=== PATIENT | male | born 1980 | race African-American/Black ===

== ENCOUNTER 2020-12-03 10:55 | Emergency (ER) | payer BC, OTHER ==
[~2020-12-03] VITALS: Ht 188 cm; Wt 117.9 kg
[2020-12-03] MEDS ORDERED: methylPREDNISolone SOD SUCC 125 MG/2 ML VL IV ONE (11:00)
[2020-12-03 12:03] LABS: Potassium 3.9 mmol/L (3.5-5.1)
[2020-12-03 12:27] LABS: Albumin 3.8 g/dL (3.4-5.0); Calcium 8.9 mg/dL (8.5-10.1)
[2020-12-03 12:36] LABS: Total Protein 8.1 g/dL (6.4-8.2)
[2020-12-03] MEDS ORDERED: ASPirin 81 mg TAB ONE (12:38)
[2020-12-03 12:45] LABS: Basophils # (auto) 0 10 ^3/uL (0-0.2); Basophils % (auto) 0.5 % (0.0-2.0); Eosinophils # (auto) 0 10 ^3/uL (0-0.8); Eosinophils % (auto) 0.1 % (0.0-7.0); Hematocrit 38.1 % (41.0-53.0); Hemoglobin 12.5 g/dL (13.5-17.5); Lymphocytes # (auto) 1.3 10 ^3/uL (0.4-5.4); Lymphocytes % (auto) 18.6 % (10.0-50.0); Mean Corpuscular Hemoglobin 28.6 pg (28.0-32.0); Mean Corpuscular Hgb Conc. 32.9 g/dL (32.0-36.0); Monocytes # (auto) 0.6 10 ^3/uL (0-1.3); Monocytes % (auto) 8.1 % (0.0-12.0); Neutrophils # (auto) 5.1 10 ^3/uL (1.6-8.6); Neutrophils % (auto) 72.7 % (37.0-80.0); Platelet Count (auto) 139 10^3/uL (140-450); Red Blood Cells 4.38 10^6/uL (4.5-5.90); Red Cell Distribution Width 14.9 % (11.8-14.3); White Blood Cell 7.1 10^3/uL (4.4-10.8)
[2020-12-03] MEDS ORDERED: ASPirin 81 mg TAB PO ONE (12:45)
[2020-12-03 12:46] LABS: Bilirubin, Total 2.6 mg/dL (0.2-1.0)
[2020-12-03 12:55] LABS: CRP High Sensitivity 7.92 mg/dL (< 0.3)
[2020-12-03 12:59] LABS: BUN/Creatinine Ratio 12.7
[2020-12-03] MEDS ORDERED: BAMLANIVIMAB 700MG/200ML 200 ML IV ONE (13:45)
[2020-12-03] MEDS ORDERED: ACETAMINOPHEN 325 MG TAB PO ONE (14:15)
[2020-12-03 16:02] VITALS: BP 121/77
== END 2020-12-03 16:10 | disposition home or self-care (01) ==
LOC: ER 10:55
DX: U07.1 COVID-19 (principal); E11.9 Type 2 diabetes mellitus without complications; R79.89 Other specified abnormal findings of blood chemistry; R79.82 Elevated C-reactive protein (CRP)
CPT/HCPCS: 36415; 71250; 80053; 82306; 82728; 83036; 85025; 85379; 86141; 96374; 99285; J2930; M0239; Q0239

== ENCOUNTER 2020-12-06 12:59 | Inpatient (IN) | payer BC ==
[~2020-12-06] VITALS: Ht 188 cm; Wt 113.8 kg
[2020-12-06] MEDS ORDERED: SODIUM CHLORIDE 0.9% 500 ML IV ONE (13:15)
[2020-12-06 13:49] LABS: Hematocrit 31.6 % (41.0-53.0); Hemoglobin 10.4 g/dL (13.5-17.5); Mean Corpuscular Hemoglobin 28.8 pg (28.0-32.0); Mean Corpuscular Hgb Conc. 32.8 g/dL (32.0-36.0); Mean Corpuscular Volume 87.8 fL (80.0-100.0); Platelet Count (auto) 285 10^3/uL (140-450); Red Cell Distribution Width 15.6 % (11.8-14.3); White Blood Cell 15.1 10^3/uL (4.4-10.8)
[2020-12-06 13:50] LABS: Potassium 5.1 mmol/L (3.5-5.1)
[2020-12-06 13:51] LABS: Basophils % (manual) 0 (0.0-2.0); Blast Cells 0; Eosinophils % (manual) 0 (0-7); Metamyelocytes % 0; Myelocytes % 0; Promyelocytes % 0; Reactive Lymphocytes 0
[2020-12-06 14:00] LABS: Albumin 3.1 g/dL (3.4-5.0); BUN/Creatinine Ratio 23.8; Bilirubin, Total 3.8 mg/dL (0.2-1.0); CRP High Sensitivity 10.8 mg/dL (< 0.3); Calcium 8.8 mg/dL (8.5-10.1); Total Protein 8.2 g/dL (6.4-8.2)
[2020-12-06 14:30] LABS: Band Neutrophils % (manual) 5; Lymphocytes % (manual) 11 (10.0-50.0); Monocytes % (manual) 6 (0-12)
[2020-12-06] MEDS ORDERED: SODIUM CHLORIDE 0.9% 1,000 ML IV ONE (14:45)
[2020-12-06] MEDS ORDERED: FAMOTIDINE (10MG/ML) 2ML VL IV ONE (14:45)
[2020-12-06] MEDS ORDERED: FOLIC ACID 1 MG TAB PO ONE (14:45)
[2020-12-06] MEDS ORDERED: traMADol HCL 50 MG TAB PO PRN (14:45)
[2020-12-06] MEDS ORDERED: ONDANSETRON HCL 4 MG/2 ML VIAL IV PRN (14:45)
[2020-12-06] MEDS ORDERED: ENOXAPARIN SOD 60 MG/0.6 ML SYRINGE SC ONE (14:45)
[2020-12-06] MEDS ORDERED: CHOLECALCIFEROL (VITD3) 2,000 UNIT CAP PO ONE (14:45)
[2020-12-06] MEDS ORDERED: PIPERACILLIN-TAZOB 3.375GM 100 ML IV ONE (14:45)
[2020-12-06] MEDS ORDERED: MORPHINE SULF INJ 2 MG/ML SYRINGE 1ML IV PRN (14:45)
[2020-12-06] MEDS ORDERED: THIAMINE 100mg/ml INJ (200mg/2ml VIAL) IV ONE (14:45)
[2020-12-06] MEDS ORDERED: NITROGLYCERIN 0.4 MG SL TAB SL PRN (14:45)
[2020-12-06] MEDS ORDERED: INSULIN LANTUS (GLARGINE) 1 /0.01ml (100units/ml) SC ONE (14:45)
[2020-12-06] MEDS ORDERED: DEXTROSE (50%) 50ML SYRG IV PRN (14:45)
[2020-12-06 15:46] LABS: % Iron Saturation 29.1 % (20-55)
[2020-12-06] MEDS: ACCU-CHEK COMFORT CURVE STRIP VI SCH ×2 (17:26→22:04)
[2020-12-06] MEDS: InsuLIN REG 1unit/0.01ml Soln (100units/ml) SC SCH ×3 (17:36→22:15)
[2020-12-06] MEDS ORDERED: EMPA1TAB3 PO (18:08)
[2020-12-06] MEDS ORDERED: LISI-648 PO (18:08)
[2020-12-06] MEDS ORDERED: ATOR40TA52 PO (18:08)
[2020-12-06] MEDS ORDERED: SEMA2INJ SC (18:08)
[2020-12-06] MEDS ORDERED: METF-372 PO (18:08)
[2020-12-06] MEDS ORDERED: INSU1INJ13 SC (18:08)
[2020-12-06] MEDS ORDERED: INSULIN LANTUS (GLARGINE) 1 /0.01ml (100units/ml) SC SCH (22:00)
[2020-12-06] MEDS: PIPERACILLIN-TAZOB 3.375GM 100 ML IV SCH (22:03)
[2020-12-06] MEDS: FAMOTIDINE (10MG/ML) 2ML VL IV SCH (22:04)
[2020-12-06] MEDS: ASCORBIC ACID 500 MG TAB PO SCH (22:04)
[2020-12-06] MEDS: ENOXAPARIN SOD 60 MG/0.6 ML SYRINGE SC SCH (22:04)
[2020-12-06 23:31] LABS: Urine Bacteria FEW /hpf (None Seen); Urine Blood 1+ /uL (Negative); Urine Specific Gravity 1.017 (1.001-1.035); Urine WBC 1 /hpf (0 - 3)
[2020-12-07 00:28] VITALS: BP 124/81
[2020-12-07] MEDS: PIPERACILLIN-TAZOB 3.375GM 100 ML IV SCH ×3 (05:36→21:59)
[2020-12-07] MEDS: InsuLIN REG 1unit/0.01ml Soln (100units/ml) SC SCH ×4 (06:38→22:04)
[2020-12-07] MEDS: ACCU-CHEK COMFORT CURVE STRIP VI SCH ×4 (06:38→22:02)
[2020-12-07 06:58] LABS: Hematocrit 29.5 % (41.0-53.0); Hemoglobin 9.6 g/dL (13.5-17.5); Mean Corpuscular Hemoglobin 28.7 pg (28.0-32.0); Mean Corpuscular Hgb Conc. 32.5 g/dL (32.0-36.0); Mean Corpuscular Volume 88.4 fL (80.0-100.0); Platelet Count (auto) 290 10^3/uL (140-450); Red Blood Cells 3.34 10^6/uL (4.5-5.90); Red Cell Distribution Width 15.7 % (11.8-14.3); White Blood Cell 11.7 10^3/uL (4.4-10.8)
[2020-12-07 07:08] LABS: Basophils % (manual) 0 (0.0-2.0); Blast Cells 0; Eosinophils % (manual) 0 (0-7); Promyelocytes % 0; Reactive Lymphocytes 0
[2020-12-07 07:17] LABS: Albumin 2.9 g/dL (3.4-5.0); Calcium 8.9 mg/dL (8.5-10.1); Potassium 4.4 mmol/L (3.5-5.1)
[2020-12-07 07:23] LABS: Bilirubin, Total 2.6 mg/dL (0.2-1.0); Total Protein 7.7 g/dL (6.4-8.2)
[2020-12-07 08:00] VITALS: BP 103/64
[2020-12-07 08:57] LABS: Band Neutrophils % (manual) 10; Lymphocytes % (manual) 12 (10.0-50.0); Metamyelocytes % 1; Monocytes % (manual) 7 (0-12); Myelocytes % 1
[2020-12-07] MEDS: THIAMINE 100mg/ml INJ (200mg/2ml VIAL) IV SCH (10:19)
[2020-12-07] MEDS: ZINC SULFATE 220mg CAP or TAB PO SCH (10:20)
[2020-12-07] MEDS: ASCORBIC ACID 500 MG TAB PO SCH ×2 (10:20→22:02)
[2020-12-07] MEDS: ENOXAPARIN SOD 60 MG/0.6 ML SYRINGE SC SCH ×2 (10:20→22:02)
[2020-12-07] MEDS: FAMOTIDINE (10MG/ML) 2ML VL IV SCH ×2 (10:20→21:59)
[2020-12-07] MEDS: CHOLECALCIFEROL (VITD3) 2,000 UNIT CAP PO SCH (10:20)
[2020-12-07] MEDS: FOLIC ACID 1 MG TAB PO SCH (10:20)
[2020-12-07] MEDS ORDERED: ERGOCALCIFEROL 50,000 UNIT(1.25MG) CAP PO SCH (11:30)
[2020-12-07] MEDS: SODIUM CHLORIDE 0.9% 1,000 ML IV SCH (11:44)
[2020-12-07 16:00] VITALS: BP_SYST 118; BP_SYST 129; BP_DIAS 79; BP_DIAS 80
[2020-12-07] MEDS ORDERED: INSULIN LANTUS (GLARGINE) 1 /0.01ml (100units/ml) SC SCH (22:00)
[2020-12-08] VITALS: BP 106/56
[2020-12-08] MEDS: SODIUM CHLORIDE 0.9% 1,000 ML IV SCH (01:06)
[2020-12-08] MEDS: PIPERACILLIN-TAZOB 3.375GM 100 ML IV SCH ×3 (05:44→21:47)
[2020-12-08 06:11] LABS: Hematocrit 28.2 % (41.0-53.0); Hemoglobin 9.4 g/dL (13.5-17.5); Mean Corpuscular Hemoglobin 29.4 pg (28.0-32.0); Mean Corpuscular Hgb Conc. 33.3 g/dL (32.0-36.0); Mean Corpuscular Volume 88.2 fL (80.0-100.0); Platelet Count (auto) 294 10^3/uL (140-450); Red Blood Cells 3.19 10^6/uL (4.5-5.90); Red Cell Distribution Width 15.7 % (11.8-14.3); White Blood Cell 9.9 10^3/uL (4.4-10.8)
[2020-12-08 06:27] LABS: Basophils % (manual) 0 (0.0-2.0); Blast Cells 0; Promyelocytes % 0; Reactive Lymphocytes 0
[2020-12-08] MEDS: InsuLIN REG 1unit/0.01ml Soln (100units/ml) SC SCH ×3 (06:27→17:40)
[2020-12-08] MEDS: ACCU-CHEK COMFORT CURVE STRIP VI SCH ×3 (06:27→17:39)
[2020-12-08 06:31] LABS: Albumin 2.7 g/dL (3.4-5.0); Calcium 8.1 mg/dL (8.5-10.1); Potassium 4.1 mmol/L (3.5-5.1)
[2020-12-08 06:34] LABS: BUN/Creatinine Ratio 16.4; Bilirubin, Total 1.5 mg/dL (0.2-1.0); Total Protein 7.2 g/dL (6.4-8.2)
[2020-12-08 07:22] LABS: Band Neutrophils % (manual) 5; Eosinophils % (manual) 2 (0-7); Lymphocytes % (manual) 21 (10.0-50.0); Metamyelocytes % 3; Monocytes % (manual) 9 (0-12); Myelocytes % 2
[2020-12-08 08:00] VITALS: BP 117/77
[2020-12-08] MEDS: ENOXAPARIN SOD 60 MG/0.6 ML SYRINGE SC SCH ×2 (08:28→21:39)
[2020-12-08] MEDS: ASCORBIC ACID 500 MG TAB PO SCH ×2 (08:28→21:39)
[2020-12-08] MEDS: FOLIC ACID 1 MG TAB PO SCH (08:28)
[2020-12-08] MEDS: ZINC SULFATE 220mg CAP or TAB PO SCH (08:28)
[2020-12-08] MEDS: CHOLECALCIFEROL (VITD3) 2,000 UNIT CAP PO SCH (08:29)
[2020-12-08] MEDS: FAMOTIDINE (10MG/ML) 2ML VL IV SCH ×2 (08:29→21:46)
[2020-12-08] MEDS: THIAMINE 100mg/ml INJ (200mg/2ml VIAL) IV SCH (08:29)
[2020-12-08] MEDS ORDERED: REMDESIVIR PER PHARMACY 0 ML IV SCH (09:45)
[2020-12-08] MEDS ORDERED: DexAMETHasone SOD PHOS 10MG/1ML VIAL INJ IV ONE (09:45)
[2020-12-08] MEDS ORDERED: DEXTROSE (50%) 50ML SYRG IV PRN ×2 (09:45→10:15)
[2020-12-08] MEDS ORDERED: FERROUS SULFATE 325 MG TAB PO ONE (09:45)
[2020-12-08] MEDS ORDERED: REMDESIVIR 200 MG in NS 210ml LOADING DOSE ADULT IV ONE (11:30)
[2020-12-08 11:46] LABS: INR 1.03 (0.9-1.15)
[2020-12-08] MEDS: DexAMETHasone SOD PHOS 10MG/1ML VIAL INJ IV SCH (11:53)
[2020-12-08] MEDS: INSULIN LANTUS (GLARGINE) 1 /0.01ml (100units/ml) SC SCH (11:59)
[2020-12-08] MEDS ORDERED: ERGOCALCIFEROL 50,000 UNIT(1.25MG) CAP PO SCH (12:00)
[2020-12-08] MEDS ORDERED: ACCU-CHEK COMFORT CURVE STRIP VI SCH (12:00)
[2020-12-08] MEDS ORDERED: InsuLIN REG 1unit/0.01ml Soln (100units/ml) SC SCH (12:00)
[2020-12-08 16:00] VITALS: BP 117/82
[2020-12-08] MEDS: FERROUS SULFATE 325 MG TAB PO SCH (17:39)
[2020-12-09] VITALS: BP 113/75
[2020-12-09] MEDS: ACCU-CHEK COMFORT CURVE STRIP VI SCH ×5 (00:23→23:30)
[2020-12-09] MEDS: InsuLIN REG 1unit/0.01ml Soln (100units/ml) SC SCH ×5 (00:25→23:45)
[2020-12-09] MEDS: PIPERACILLIN-TAZOB 3.375GM 100 ML IV SCH ×3 (05:44→21:53)
[2020-12-09 08:00] VITALS: BP 132/75
[2020-12-09] MEDS: FERROUS SULFATE 325 MG TAB PO SCH ×2 (08:00→17:42)
[2020-12-09] MEDS: ENOXAPARIN SOD 60 MG/0.6 ML SYRINGE SC SCH ×2 (10:10→21:53)
[2020-12-09] MEDS: FAMOTIDINE (10MG/ML) 2ML VL IV SCH ×2 (10:10→21:52)
[2020-12-09] MEDS: DexAMETHasone SOD PHOS 10MG/1ML VIAL INJ IV SCH (10:10)
[2020-12-09] MEDS: THIAMINE 100mg/ml INJ (200mg/2ml VIAL) IV SCH (10:10)
[2020-12-09] MEDS: FOLIC ACID 1 MG TAB PO SCH (10:11)
[2020-12-09] MEDS: ASCORBIC ACID 500 MG TAB PO SCH ×2 (10:11→21:53)
[2020-12-09] MEDS: ZINC SULFATE 220mg CAP or TAB PO SCH (10:11)
[2020-12-09] MEDS: INSULIN LANTUS (GLARGINE) 1 /0.01ml (100units/ml) SC SCH ×2 (10:22→23:40)
[2020-12-09 11:24] LABS: Hematocrit 28.5 % (41.0-53.0); Hemoglobin 9.5 g/dL (13.5-17.5); Mean Corpuscular Hemoglobin 29.8 pg (28.0-32.0); Mean Corpuscular Hgb Conc. 33.3 g/dL (32.0-36.0); Mean Corpuscular Volume 89.5 fL (80.0-100.0); Platelet Count (auto) 326 10^3/uL (140-450); Red Blood Cells 3.18 10^6/uL (4.5-5.90); Red Cell Distribution Width 15.7 % (11.8-14.3); White Blood Cell 10.1 10^3/uL (4.4-10.8)
[2020-12-09 11:32] LABS: Albumin 2.9 g/dL (3.4-5.0); Calcium 8.8 mg/dL (8.5-10.1); Potassium 3.9 mmol/L (3.5-5.1)
[2020-12-09 11:36] LABS: BUN/Creatinine Ratio 12.5; Total Protein 7.4 g/dL (6.4-8.2)
[2020-12-09 11:48] LABS: Basophils % (manual) 0 (0.0-2.0); Blast Cells 0; Eosinophils % (manual) 0 (0-7); Promyelocytes % 0; Reactive Lymphocytes 0
[2020-12-09 12:14] LABS: Band Neutrophils % (manual) 3; Lymphocytes % (manual) 19 (10.0-50.0); Metamyelocytes % 7; Monocytes % (manual) 11 (0-12); Myelocytes % 2
[2020-12-09] MEDS: REMDESIVIR 100mg 100 MG in SODIUM CHL 0.9% 230 ML IV SCH (15:02)
[2020-12-09 15:52] VITALS: BP 113/79
[2020-12-10] VITALS: BP 116/61
[2020-12-10] MEDS: ACCU-CHEK COMFORT CURVE STRIP VI SCH ×3 (06:43→17:40)
[2020-12-10] MEDS: PIPERACILLIN-TAZOB 3.375GM 100 ML IV SCH (06:44)
[2020-12-10] MEDS: InsuLIN REG 1unit/0.01ml Soln (100units/ml) SC SCH ×3 (06:45→17:40)
[2020-12-10 07:53] LABS: Albumin 2.8 g/dL (3.4-5.0); BUN/Creatinine Ratio 12.2; Bilirubin, Total 0.6 mg/dL (0.2-1.0); Calcium 8.7 mg/dL (8.5-10.1); Total Protein 7.2 g/dL (6.4-8.2)
[2020-12-10 08:00] VITALS: BP 113/72
[2020-12-10] MEDS: THIAMINE 100mg/ml INJ (200mg/2ml VIAL) IV SCH (10:11)
[2020-12-10] MEDS: FAMOTIDINE (10MG/ML) 2ML VL IV SCH (10:11)
[2020-12-10] MEDS: ASCORBIC ACID 500 MG TAB PO SCH ×2 (10:11→19:32)
[2020-12-10] MEDS: FOLIC ACID 1 MG TAB PO SCH (10:11)
[2020-12-10] MEDS: FERROUS SULFATE 325 MG TAB PO SCH ×2 (10:11→17:39)
[2020-12-10] MEDS: ZINC SULFATE 220mg CAP or TAB PO SCH (10:11)
[2020-12-10] MEDS: DexAMETHasone SOD PHOS 10MG/1ML VIAL INJ IV SCH (10:11)
[2020-12-10] MEDS: ENOXAPARIN SOD 60 MG/0.6 ML SYRINGE SC SCH ×2 (10:12→19:33)
[2020-12-10] MEDS: INSULIN LANTUS (GLARGINE) 1 /0.01ml (100units/ml) SC SCH ×2 (10:24→19:40)
[2020-12-10] MEDS: REMDESIVIR 100mg 100 MG in SODIUM CHL 0.9% 230 ML IV SCH (15:41)
[2020-12-10 16:00] VITALS: BP 138/84
[2020-12-10] MEDS: metFORMIN HYDROCHLORIDE 500 MG TAB PO SCH (17:40)
[2020-12-10] MEDS: FAMOTIDINE 20 MG TAB PO SCH (19:32)
[2020-12-10] MEDS: DOXYCYCLINE 100 MG TAB/CAP PO SCH (19:32)
[2020-12-10 23:57] VITALS: BP 120/78
[2020-12-11] MEDS: ACCU-CHEK COMFORT CURVE STRIP VI SCH ×5 (00:21→23:38)
[2020-12-11] MEDS: InsuLIN REG 1unit/0.01ml Soln (100units/ml) SC SCH ×5 (00:25→23:38)
[2020-12-11 08:00] VITALS: BP 107/50
[2020-12-11 08:12] LABS: Calcium 8.7 mg/dL (8.5-10.1); Potassium 3.7 mmol/L (3.5-5.1)
[2020-12-11 08:18] LABS: Albumin 2.8 g/dL (3.4-5.0); BUN/Creatinine Ratio 10.8; Bilirubin, Total 0.6 mg/dL (0.2-1.0); Total Protein 7.3 g/dL (6.4-8.2)
[2020-12-11] MEDS: FAMOTIDINE 20 MG TAB PO SCH ×2 (08:33→21:19)
[2020-12-11] MEDS: metFORMIN HYDROCHLORIDE 500 MG TAB PO SCH ×2 (08:33→18:28)
[2020-12-11] MEDS: ZINC SULFATE 220mg CAP or TAB PO SCH (08:33)
[2020-12-11] MEDS: ASCORBIC ACID 500 MG TAB PO SCH ×2 (08:34→21:19)
[2020-12-11] MEDS: FOLIC ACID 1 MG TAB PO SCH (08:34)
[2020-12-11] MEDS: THIAMINE 100mg/ml INJ (200mg/2ml VIAL) IV SCH (08:34)
[2020-12-11] MEDS: ENOXAPARIN SOD 60 MG/0.6 ML SYRINGE SC SCH ×2 (08:34→21:21)
[2020-12-11] MEDS: FERROUS SULFATE 325 MG TAB PO SCH ×2 (08:34→18:28)
[2020-12-11] MEDS: DOXYCYCLINE 100 MG TAB/CAP PO SCH ×2 (08:34→21:19)
[2020-12-11] MEDS: REMDESIVIR 100mg 100 MG in SODIUM CHL 0.9% 230 ML IV SCH (15:19)
[2020-12-11 16:00] VITALS: BP 127/74
[2020-12-11] MEDS: INSULIN LANTUS (GLARGINE) 1 /0.01ml (100units/ml) SC SCH (23:37)
[2020-12-12 00:03] VITALS: BP 118/69
[2020-12-12] MEDS: ACCU-CHEK COMFORT CURVE STRIP VI SCH ×3 (05:59→18:03)
[2020-12-12] MEDS: InsuLIN REG 1unit/0.01ml Soln (100units/ml) SC SCH ×3 (06:04→18:05)
[2020-12-12 06:37] LABS: Hematocrit 31.3 % (41.0-53.0); Hemoglobin 10.3 g/dL (13.5-17.5); Mean Corpuscular Hemoglobin 29.7 pg (28.0-32.0); Platelet Count (auto) 300 10^3/uL (140-450); Red Blood Cells 3.48 10^6/uL (4.5-5.90); Red Cell Distribution Width 16.2 % (11.8-14.3)
[2020-12-12 06:49] LABS: Basophils % (manual) 0 (0.0-2.0); Blast Cells 0; Eosinophils % (manual) 0 (0-7); Promyelocytes % 0; Reactive Lymphocytes 0
[2020-12-12 07:00] LABS: Albumin 2.9 g/dL (3.4-5.0); Potassium 3.8 mmol/L (3.5-5.1)
[2020-12-12 07:05] LABS: BUN/Creatinine Ratio 10.2; Bilirubin, Total 0.9 mg/dL (0.2-1.0); Calcium 8.6 mg/dL (8.5-10.1); Total Protein 7.1 g/dL (6.4-8.2)
[2020-12-12 08:00] VITALS: BP 105/51
[2020-12-12 08:23] LABS: Band Neutrophils % (manual) 12; Lymphocytes % (manual) 21 (10.0-50.0); Metamyelocytes % 2; Monocytes % (manual) 13 (0-12); Myelocytes % 1
[2020-12-12] MEDS: FAMOTIDINE 20 MG TAB PO SCH (08:43)
[2020-12-12] MEDS: DOXYCYCLINE 100 MG TAB/CAP PO SCH (08:43)
[2020-12-12] MEDS: THIAMINE 100mg/ml INJ (200mg/2ml VIAL) IV SCH (08:44)
[2020-12-12] MEDS: FERROUS SULFATE 325 MG TAB PO SCH ×2 (08:44→18:02)
[2020-12-12] MEDS: ZINC SULFATE 220mg CAP or TAB PO SCH (08:44)
[2020-12-12] MEDS: ASCORBIC ACID 500 MG TAB PO SCH (08:44)
[2020-12-12] MEDS: metFORMIN HYDROCHLORIDE 500 MG TAB PO SCH ×2 (08:44→18:02)
[2020-12-12] MEDS: FOLIC ACID 1 MG TAB PO SCH (08:44)
[2020-12-12] MEDS: ENOXAPARIN SOD 60 MG/0.6 ML SYRINGE SC SCH (08:45)
[2020-12-12] MEDS: INSULIN LANTUS (GLARGINE) 1 /0.01ml (100units/ml) SC SCH (11:43)
[2020-12-12] MEDS: REMDESIVIR 100mg 100 MG in SODIUM CHL 0.9% 230 ML IV SCH (15:02)
[2020-12-12 16:00] VITALS: BP 126/74
== END 2020-12-12 19:05 | disposition home or self-care (01) | DRG 871 ==
LOC: ER 12:59 → TELE-WESTW 13:00
PROVIDERS: ADMIT Internal Medicine; ATTEND Internal Medicine
PROC: XW033E5 Introduction of Remdesivir Anti-infective into Peripheral Vein, Percutaneous Approach, New Technology Group 5 (ICD-10-PCS; principal; 2020-12-08)
DX: A41.89 Other specified sepsis (principal); J12.82 Pneumonia due to coronavirus disease 2019; N17.0 Acute kidney failure with tubular necrosis; U07.1 COVID-19; J96.01 Acute respiratory failure with hypoxia; E87.1 Hypo-osmolality and hyponatremia; J98.11 Atelectasis; D50.9 Iron deficiency anemia, unspecified; E11.65 Type 2 diabetes mellitus with hyperglycemia; E66.9 Obesity, unspecified; E78.5 Hyperlipidemia, unspecified; E86.0 Dehydration; N18.30 Chronic kidney disease, stage 3 unspecified; I12.9 Hypertensive chronic kidney disease with stage 1 through stage 4 chronic kidney disease, or unspecified chronic kidney disease; R74.01 Elevation of levels of liver transaminase levels; E55.9 Vitamin D deficiency, unspecified; E88.09 Other disorders of plasma-protein metabolism, not elsewhere classified; R65.20 Severe sepsis without septic shock; K72.90 Hepatic failure, unspecified without coma; K76.0 Fatty (change of) liver, not elsewhere classified; Z83.3 Family history of diabetes mellitus; Z79.82 Long term (current) use of aspirin; Z68.32 Body mass index [BMI] 32.0-32.9, adult
CPT/HCPCS: 36415; 71045; 74176; 76705; 80053; 81001; 82270; 82306; 82728; 82962; 83540; 83550; 84443; 84484; 85007; 85027; 85379; 85610; 86141; 87040; 93005; 93306; 93970; 96361; 96365; 96372; 96375; G0378; J1100; J1815; J2543; J3490